=== PATIENT | male | born 1960 | race Caucasian/White ===

== ENCOUNTER 2020-08-15 23:00 | Inpatient (IN) | payer OTHER ==
[~2020-08-15 23:00] MED LIST: Iopamidol-370 76% 500 ML 1 ML ONE
--- NOTE | 2020-08-15 23:12 | CT ---
Exam: Head CT without contrast HISTORY: Left arm and leg weakness. Slurred speech. Symptoms have improved. COMPARISON: none FINDINGS: Hemorrhage: No intraparenchymal hemorrhage or extra-axial hematoma. Brain parenchyma: Cortical damon-white matter differentiation is preserved. No mass effect or midline shift. Basilar cisterns are patent. Ventricular system: Ventricles and sulci are patent and symmetric. Calvarium: Intact. Sinuses and mastoid air cells: Adequate aeration. IMPRESSION: 1. No acute intracranial process. 2. Results study conveyed to Dr. Nicole 08/15/2020 at 11:09 PM Code CR
[2020-08-15 23:43] LABS: #Eosinphils 0.1 thou/uL (0.0-0.7); #Lymphocytes 2.5 thou/uL (1.20-3.40); #Monocytes 0.8 thou/uL (0.11-0.59); #Neutrophils 2.4 thou/uL (1.40-6.50); %Basophils 0.8 % (0.0-1.0); %Eosinophils 2.1 % (0.0-10.0); %Lymphocytes 42.6 % (21.0-51.0); %Monocytes 13.7 % (0.0-10.0); %Neutrophils 40.8 % (42.0-75.0); Hemoglobin 13.7 g/dL (14.0-18.0); Mean Corpuscular HGB CONC 34.4 g/dL (32.0-36.0); Mean Corpuscular Hemoglobin 32.5 pg (27.0-31.0); Mean Corpuscular Volume 94.5 fL (78.0-98.0); Mean Platelet Volume 7.1 fL (7.4-10.4); Platelet Count 195 thou/uL (130-400); RBC Distribution Width 11.5 % (11.5-14.5)
[2020-08-15 23:49] LABS: PTT 30.9 sec (22.9-36.1); Prothrombin Time 13.5 sec (12.0-14.7)
[2020-08-15 23:59] LABS: ALT (SGPT) 42 U/L (8-55); AST (SGOT) 30 U/L (5-34); Albumin 3.4 g/dL (3.4-4.8); Alkaline Phosphatase 57 U/L (40-110); Anion Gap 14 mmol/L (10-20); BUN (Urea Nitrogen) 16 mg/dL (8.4-25.7); Bilirubin, Total 0.4 mg/dL (0.2-1.2); Calc. Creatinine Clearance 0 mL/min (70-130); Calcium 8.6 mg/dL (7.8-10.44); Carbon Dioxide 26 mmol/L (23-31); Chloride 105 mmol/L (98-107); Globulin 2.9 g/dL (2.4-3.5); Glucose 83 mg/dL (80-115); Potassium 3.6 mmol/L (3.5-5.1); Protein, Total 6.3 g/dL (5.8-8.1); Sodium 141 mmol/L (136-145)
[2020-08-16 01:27] LABS: SARS-CoV-2 NAA Rapid Test Not Detected (NotDetected)
[2020-08-16 01:46] VITALS: BMI 31.8
[2020-08-16] MEDS ORDERED: Ondansetron ODT 4 MG TAB PO PRN (02:43)
[2020-08-16] MEDS ORDERED: Acetaminophen 500 MG TAB PO PRN (02:43)
[2020-08-16] MEDS ORDERED: Ondansetron PF 4 MG/2 ML Vial IVP PRN (02:43)
[2020-08-16] MEDS ORDERED: hydrALAZINE 20 MG/ML VIAL SLOW IVP PRN (02:43)
--- NOTE | 2020-08-16 03:51 | HP ---
PRIMARY CARE PROVIDER: Dr. Beatrice Michele. CHIEF COMPLAINT: Difficulty speaking and left-sided weakness. HISTORY OF PRESENT ILLNESS: This is a 60-year-old male, who presented to [facility] Emergency Room complaining of stroke-like symptoms including weakness to the left upper and lower extremities as well as difficulty speaking. The patient states the symptoms began approximately 8:00 p.m. on 08/15/2020 at which point, the patient notified EMS personnel. The patient was transported to [facility], undergoing CT imaging of the brain as well as CT angiogram of the head and neck. No specific areas of infarct were identified; however, due to the patient's presentation and discussions with the patient, the patient received tPA in the emergency room. The patient had some improvement in the weakness of his left upper extremity and speech deficit had improved as well. The patient denies any previous similar symptoms in the past and states he has been compliant with his chronic medication regimen including aspirin and Crestor. The patient does admit to history of coronary artery disease, but states overall he has been doing well with his medical management. The patient denies any visual disturbance, difficulty swallowing, or recent fall. The patient denied any recent surgical interventions or trauma. PAST MEDICAL HISTORY: 1. Diabetes mellitus type 2. 2. Hypertension. 3. Coronary artery disease. PAST SURGICAL HISTORY: Status post cardiac stent placement with repeat angioplasty in 2000. CURRENT MEDICATIONS: 1. Felodipine 10 mg p.o. daily. 2. Metoprolol succinate 100 mg p.o. daily. 3. Aspirin 325 mg p.o. daily. 4. Isosorbide mononitrate 30 mg p.o. daily. 5. Losartan 25 mg p.o. daily. 6. Metformin 500 mg p.o. b.i.d. 7. Crestor 10 mg p.o. at bedtime. 8. Multivitamin 1 tablet p.o. daily. 9. Hydrochlorothiazide 25 mg p.o. daily. ALLERGIES: NO KNOWN DRUG ALLERGIES. FAMILY HISTORY: Positive for hypertension and diabetes mellitus. SOCIAL HISTORY: Resides in [place], [place]. . 2-3 beers per week. Quit tobacco use more than 10 years prior to this evaluation. No illicit drug use. REVIEW OF SYSTEMS: CONSTITUTIONAL: Negative for weight loss or gain, ability to conduct usual activities. SKIN: Negative for rash, itching. EYES: Negative for double vision, pain. ENT/MOUTH: Negative for nose bleeding, neck stiffness, pain, tenderness. CARDIOVASCULAR: Negative for palpitations, dyspnea on exertion, orthopnea. RESPIRATORY: Negative for shortness of breath, wheezing, cough, hemoptysis, fever or night sweats. GASTROINTESTINAL: Negative for poor appetite, abdominal pain, heartburn, nausea, vomiting, constipation, or diarrhea. GENITOURINARY: Negative for urgency, frequency, dysuria, nocturia. MUSCULOSKELETAL: Negative for pain, swelling. NEUROLOGIC/PSYCHIATRIC: Negative for anxiety, depression. ALLERGY/IMMUNOLOGIC: Negative for skin rash, bleeding tendency. Otherwise, negative except as stated per HPI. PHYSICAL EXAMINATION: VITAL SIGNS: On admission, blood pressure 124/75, pulse 86, respiratory rate 22, temperature 97.9 degrees Fahrenheit, and O2 saturation 98% on room air. GENERAL APPEARANCE: This is a 60-year-old male, alert and oriented x3, pleasant, responsive, in no acute distress. HEENT: Pupils are equal, round, reactive to light and accommodation. Extraocular muscles are intact. No scleral icterus. No conjunctival injection. Nares patent. OP is clear. Teeth in fair repair. NECK: Supple. No cervical adenopathy. No thyromegaly. No carotid bruits. No JVD appreciated. Cervical spine with full active and passive range of motion. No meningeal signs noted. CHEST: Lungs are clear to auscultation bilaterally. CARDIOVASCULAR: S1, S2 without noted murmur, rub, or gallop. ABDOMEN: Rounded, soft, nontender, and nondistended. Bowel sounds are positive in all 4 quadrants. There is no hepatosplenomegaly. No abdominal bruits. No rebound or guarding appreciated. EXTREMITIES: Warm and dry with fair turgor. No clubbing, cyanosis, or asymmetric edema noted. Pulses palpable distally at the dorsalis pedis, posterior tibial, and popliteal arteries bilaterally. Capillary refill less than 2 seconds. NEUROLOGIC: Cranial nerves 2 through 12 are grossly intact. Mild left upper extremity weakness in conductor/engineer strength compared to the right. Mild left facial asymmetry. Moves all extremities on command. Not observed ambulatory during this exam. PERTINENT LABORATORY AND X-RAY FINDINGS: Complete metabolic profile within normal limits. Troponin-I negative x1. CBC showed a white blood cell count of 6.0, hemoglobin 14, hematocrit 40, and platelet count 195, with 41% neutrophils. PT 13.5, INR 1.0, PTT 31. COVID-19 PCR not detected on 08/16/2020. CT of the brain without contrast dated 08/15/2020, showed no acute intracranial process. CT angiogram of the head and neck dated 08/15/2020, showed no hemodynamically significant stenosis, occlusion, or aneurysm. EKG dated 08/15/2020, by my interpretation shows sinus mechanism. Normal R-wave progression noted in the precordial leads. No acute ST-T wave changes noted. Normal axis. ASSESSMENT AND PLAN: 1. Acute cerebrovascular accident with left-sided weakness. The patient will be admitted to the Critical Care Unit after receiving tPA in the emergency room. Overall neurologic deficits resolving currently. We will continue to monitor in the Critical Care Unit per protocol. Check 2D transthoracic echocardiogram in the a.m. Consult Neurology Service for any further recommendations. Hold aspirin for 24 hours after tPA administration. 2. Hypertension. Resume home blood pressure regimen and monitor clinical response. 3. Hyperlipidemia. Check fasting lipid profile per stroke protocol. Continue Crestor. 4. Coronary artery disease, chronic and stable. Continue medical management. 5. Prophylaxis. SCDs while in bed. Pepcid 20 mg p.o. b.i.d. CODE STATUS: Full. Surrogate medical decision maker is the patient's spouse. Job ID: [id number]
[2020-08-16 04:24] LABS: #Eosinphils 0.1 thou/uL (0.0-0.7); #Lymphocytes 2.5 thou/uL (1.20-3.40); #Monocytes 0.8 thou/uL (0.11-0.59); #Neutrophils 2.1 thou/uL (1.40-6.50); %Basophils 0.8 % (0.0-1.0); %Eosinophils 2.3 % (0.0-10.0); %Lymphocytes 45.5 % (21.0-51.0); %Monocytes 14.2 % (0.0-10.0); %Neutrophils 37.2 % (42.0-75.0); Hemoglobin 14.3 g/dL (14.0-18.0); Mean Corpuscular HGB CONC 34.1 g/dL (32.0-36.0); Mean Corpuscular Hemoglobin 32.5 pg (27.0-31.0); Mean Corpuscular Volume 95.3 fL (78.0-98.0); Mean Platelet Volume 7.3 fL (7.4-10.4); Platelet Count 195 thou/uL (130-400); RBC Distribution Width 11.7 % (11.5-14.5); Red Blood Cell (RBC) Count 4.41 mill/uL (4.70-6.10); White Blood Cell (WBC) Count 5.5 thou/uL (4.8-10.8)
[2020-08-16 04:45] LABS: ALT (SGPT) 43 U/L (8-55); AST (SGOT) 29 U/L (5-34); Albumin 3.7 g/dL (3.4-4.8); Alkaline Phosphatase 57 U/L (40-110); Anion Gap 15 mmol/L (10-20); BUN (Urea Nitrogen) 15 mg/dL (8.4-25.7); Bilirubin, Total 0.4 mg/dL (0.2-1.2); Calc. Creatinine Clearance 121 mL/min (70-130); Calcium 8.7 mg/dL (7.8-10.44); Carbon Dioxide 23 mmol/L (23-31); Cardiac Risk 2.2 (Less than 4.5); Chloride 106 mmol/L (98-107); Cholesterol 111 mg/dl (< 200 Desired); Globulin 3.2 g/dL (2.4-3.5); Glucose 102 mg/dL (80-115); HDL Cholesterol 50 mg/dL (>60 Neg Risk); LDL Cholesterol, Calculated 34 mg/dL; Potassium 3.6 mmol/L (3.5-5.1); Protein, Total 6.9 g/dL (5.8-8.1); Sodium 140 mmol/L (136-145); Triglycerides 136 mg/dL (Less than 150)
[2020-08-16] MEDS ORDERED: Cholecalciferol (Vitamin D3) 400 UNITS TAB PO SCH (09:00)
[2020-08-16] MEDS: hydrALAZINE 10 MG TAB PO SCH ×4 (09:15→21:58)
[2020-08-16] MEDS: Famotidine 20 MG TAB PO SCH ×2 (09:15→21:58)
--- NOTE | 2020-08-16 09:49 | PDOC.HOSPP ---
- Subjective Encounter Date: 08/16/20 (f/u stroke) Encounter Time: 09:47 Subjective: Pt today reports some numbness/tingling on left side of face. He denies any problems with strength/vision, denies any headache. NIH on arrival 4, RN reports it is now a 1. - Objective Vital Signs & Weight: Vital Signs (12 hours) Temp Pulse BP Pulse Ox 08/16/20 09:15 72 140/95 H 08/16/20 08:00 98.5 F 100 08/16/20 04:00 98.2 F 08/16/20 02:43 97 08/16/20 01:41 97.7 F Weight Weight 209 lb 7.026 oz Most Recent Monitor Data Heart Rate from ECG 71 NIBP 143/89 NIBP BP-Mean 107 Respiration from ECG 22 SpO2 100 I&O: 08/15/20 08/16/20 08/17/20 06:59 06:59 06:59 Intake Total 350 Output Total 0 550 Balance 0 -200 Result Diagrams: 08/16/20 03:12 08/16/20 03:12 EKG Reviewed by me: Yes (tele - sinus 80's) Hospitalist ROS - Medication Medications: Active Medications Generic Name Dose Route Start Last Admin Trade Name Freq PRN Reason Stop Dose Admin Cholecalciferol 400 units 08/16/20 09:00 08/16/20 09:18 Cholecalciferol (Vitamin D3) 400 Units Tab PO 400 units DAILY LEYDI Administration Famotidine 20 mg 08/16/20 09:00 08/16/20 09:15 Famotidine 20 Mg Tab PO 20 mg BID LEYDI Administration Hydralazine HCl 10 mg 08/16/20 09:00 08/16/20 09:15 Hydralazine 10 Mg Tab PO 10 mg QID LEYDI Administration Metoprolol Succinate 100 mg 08/16/20 09:00 08/16/20 09:15 Metoprolol Succinate Xl 100 Mg Tab PO 100 mg DAILY LEYDI Administration - Exam General Appearance: NAD Heart: RRR, no murmur Respiratory: CTAB, no wheezes Gastrointestinal: soft, non-tender, non-distended, normal bowel sounds Extremities: no cyanosis, no clubbing, no edema Neurological: no focal deficits Psychiatric: normal affect Hosp A/P (1) Ischemic stroke Code(s): I63.9 - CEREBRAL INFARCTION, UNSPECIFIED Status: Acute (2) Hypertension Code(s): I10 - ESSENTIAL (PRIMARY) HYPERTENSION Status: Chronic (3) Diabetes Code(s): E11.9 - TYPE 2 DIABETES MELLITUS WITHOUT COMPLICATIONS Status: Chronic Qualifiers: Diabetes mellitus type: type 2 Diabetes mellitus terminal gauger insulin use: without group home use (4) Coronary artery disease Code(s): I25.10 - ATHSCL HEART DISEASE OF [place] CORONARY ARTERY W/O ANG PCTRS Status: Chronic (5) Dyslipidemia Code(s): E78.5 - HYPERLIPIDEMIA, UNSPECIFIED Status: Chronic - Plan Ischemic stroke s/p tPA with mild residual facial sx - stroke eval - neuro consult - start aspirin tomorrow - obtain echo result - MRI - continue statin HTN - continue home meds HLP - continue statin DM - controlled, continue ISS dvt prophy - - scd's due to tPA overnight gi prophy - famotidine code status full reviewed plan of care with patient, no questions or further needs at end of eval.
[2020-08-16] MEDS: Amlodipine 10 MG TAB PO SCH (09:55)
--- NOTE | 2020-08-16 12:11 | CON ---
DATE OF CONSULTATION: 08/16/2020 This is ICU consultation related to stroke. HISTORY OF PRESENT ILLNESS: The patient is a 60-year-old male who developed abrupt left arm weakness and left-sided facial droop yesterday. He was given tPA last night and has had recovery of his left arm deficit, but continues to have facial droop. PAST MEDICAL HISTORY: 1. Diabetes mellitus. 2. Hypertension. 3. Coronary artery disease. PAST SURGICAL HISTORY: Coronary stent placement. MEDICATIONS: Prior to admission; 1. Felodipine. 2. Metoprolol. 3. Aspirin. 4. Isosorbide. 5. Losartan. 6. Metformin. 7. Crestor. 8. Multivitamin. 9. Hydrochlorothiazide. ALLERGIES: NONE. SOCIAL HISTORY: The patient quit smoking about 10 years ago. He works in the [employer]. He drinks 2 to 3 beers a week. He lives in [place]. ALLERGIES: NONE. FAMILY HISTORY: Remarkable for hypertension, diabetes. REVIEW OF SYSTEMS: Twelve-point review of systems otherwise negative. PHYSICAL EXAMINATION: VITAL SIGNS: Heart rate 66, blood pressure 141/83, O2 saturation 100%, respiratory rate 18. HEENT: He has a slight left-sided facial droop. Tongue protrudes midline. NECK: No adenopathy or JVD. LUNGS: Clear to auscultation. CARDIAC: S1 and S2. Regular without murmur. ABDOMEN: Soft and nontender to palpation. EXTREMITIES: No clubbing, cyanosis, or edema. NEUROMUSCULAR: His arm and leg strength is equal throughout. He has sensation throughout. DTRs are 2+/4 throughout. LABORATORY DATA: White blood cell count 5.5, hematocrit 42, and platelet count 195. Sodium 140, potassium 3.6, chloride 106, CO2 of 23, BUN 15, creatinine 0.8, and glucose 102. COVID test was negative. CT of the [place] of [place] demonstrated no significant findings. ASSESSMENT: 1. Stroke with symptoms improved after tPA administration. 2. Underlying risk factors including diabetes mellitus, coronary artery disease, and hypertension. PLAN: The patient will remain in ICU until his 24 hours or up from tPA administration. He is being treated appropriately with aspirin, antihypertensives, cholesterol-lowering medication, and diabetic medications. No further Pulmonary/Critical Care recommendations. We will sign off. Please recall if further assistance needed. Job ID: [id number]
--- NOTE | 2020-08-16 13:13 | MRI ---
MRI BRAIN WITHOUT CONTRAST: INDICATION: Stroke. FINDINGS: Ventricles have normal size and position. Very mild chronic ischemic white matter change. No eviden ce of restricted diffusion. No evidence of acute infarct. No mass or hemorrhage. IMPRESSION: No acute process. POS: AGW
--- NOTE | 2020-08-16 15:13 | CON ---
DATE OF CONSULTATION: 08/16/2020 CONSULTING PHYSICIAN: Hospitalist Services. IMPRESSION: 1. Transient ischemic attack, status post tPA. 2. Aspirin failure. PLAN: 1. Add Plavix 75 mg per day. 2. Review echocardiogram. HISTORY OF PRESENT ILLNESS: Mr. Lux is a 60-year-old man with a past history of coronary artery disease, hypertension, and diabetes. He presented with left-sided weakness. His CT and CT angiogram were both unremarkable. He was given tPA. His symptoms lasted about an hour. He was in a normal sinus rhythm. His COVID test was negative. Subsequently had an MRI of the brain, which did not reveal any evidence of any ischemic injury. His echocardiogram showed a normal ejection fraction of 55% to 60%. He reports being compliant with aspirin and Crestor prior to admission. PAST MEDICAL HISTORY: As listed above. ALLERGIES: NONE REPORTED. SOCIAL HISTORY: Unremarkable. FAMILY HISTORY: Unremarkable. MEDICATION LIST: Reviewed. REVIEW OF SYSTEMS: Ten-system review of systems is otherwise negative. PHYSICAL EXAMINATION: VITAL SIGNS: Blood pressure 135/86, pulse 70 and in a sinus rhythm, respirations 18, and saturations 96%. HEENT: Pupils are equal and reactive. Conjunctivae clear. Oropharynx clear. He has a birthmark on the right cheek. NECK: Supple. No lymphadenopathy. CHEST: Clear. ABDOMEN: Rotund, but nontender. EXTREMITIES: No cyanosis or edema. SKIN: Unremarkable. NEUROLOGIC: Alert and appropriate. His speech is fluent and clear. There were no focal deficits present. SUMMARY: A middle-aged man with some transient left-sided weakness, likely secondary to a small vessel ischemic event. His symptoms have resolved. I would discharge him on Plavix and aspirin. I would be happy to follow up with him as an outpatient. Job ID: [id number]
[2020-08-16 16:50] VITALS: BP 148/80
[2020-08-16] MEDS ORDERED: Atorvastatin Calcium 40 MG TAB PO SCH (21:00)
[2020-08-17 08:03] VITALS: TEMP 97.8
[2020-08-17] MEDS: hydrALAZINE 10 MG TAB PO SCH (08:28)
[2020-08-17] MEDS: Famotidine 20 MG TAB PO SCH (08:29)
[2020-08-17] MEDS: Amlodipine 10 MG TAB PO SCH (08:29)
--- NOTE | 2020-08-17 08:38 | DIS ---
DATE OF ADMISSION: 08/16/2020 DATE OF DISCHARGE: 08/17/2020 CONSULTANTS: 1. Dr. Fitzgerald of Neurology. 2. Dr. Valle of Pulmonary Critical Care. MEDICATIONS: Reconciled at discharge. New medications; 1. Plavix 75 mg once a day. Prescription provided for 30 days. Further refills to come from either the primary care or Dr. Fitzgerald. 2. Atorvastatin 40 mg at bedtime. Medications changed; aspirin is changed from 325 mg daily to 81 mg daily. This change is due to adding clopidogrel. Medications to resume; 1. Felodipine 10 mg once daily. 2. Hydralazine 10 mg four times daily. 3. Metoprolol succinate 100 mg daily. 4. Vitamin D3, 400 units daily. 5. Vitamin B12, 500 mcg daily. 6. Multivitamin daily. 7. Nitroglycerin 0.4 mg every 5 minutes as needed for chest pain. 8. Metformin 500 mg daily. 9. Nitroglycerin 0.4 mg sublingual every 5 minutes to a maximum of 3 doses prn for chest pain. 10. Losartan 25 mg daily. 11. Imdur 30 mg daily. 12. Hydrochlorothiazide 25 mg daily. FINAL DIAGNOSES: Ischemic stroke with residual left-sided facial drooping and numbness. The patient is status post tPA. SECONDARY DIAGNOSES: 1. Coronary artery disease. 2. Diabetes mellitus. 3. Hypertension. 4. Dyslipidemia. HISTORY OF PRESENT ILLNESS: Mr. Lux is a 60-year-old male, who presented to the emergency room with complaint of left-sided weakness and difficulty speaking. The onset was at 8 p.m. He underwent a negative CT of the brain and was in the window for tPA and he received it. The patient was admitted to the ICU for monitoring. HOSPITAL COURSE: The patient has done incredibly well during this hospitalization. He reports that the weakness has completely resolved on his left side. He does have numbness along his cheek on the left side and notices some drooling and some changes in his speech. His MRI was negative, echocardiogram was normal, and telemetry monitoring is normal. He was evaluated by Neurology with recommendation to change from full-dose aspirin to low-dose aspirin and Plavix combination. As well, it is recommended that he follow up with Dr. Fitzgerald in the outpatient setting. The patient was managed on his usual medications while here. His labs have remained normal, blood sugars are well controlled. The patient was evaluated by PT, OT, and speech and cleared. Given normal function, the patient does meet criteria for discharge to home. PHYSICAL EXAMINATION: VITAL SIGNS: Blood pressure 139/87, pulse 65, respirations 17, sat 90% on room air. This morning, however, it has been higher. Telemetry monitoring, sinus rhythm with a rate in the 60s. GENERAL: Awake, alert, responsive, in no apparent distress. HEENT: He has a left facial droop. LUNGS: Clear to auscultation. HEART: Normal S1 and S2. Regular rate and rhythm. No significant murmur. ABDOMEN: Soft with present bowel sounds. EXTREMITIES: No edema. NEURO: No focal deficits. Only the left facial droop and slight slurring of his speech. GARSIA FINDINGS AND TEST RESULTS: CBC on 08/16; 5.5, 14.3, 42.0, 195. INR 1. Renal panel; 140, 3.6, 106, 23, 15, 0.86, 102. LFTs are normal. Triglycerides 136, cholesterol 111, LDL 34, HDL 50. COVID testing was negative. Echocardiogram on August 16, EF 55% to 60%. Brain MRI on August 16 shows no acute process. CT angiogram of [place], no hemodynamically significant stenosis, occlusion, or aneurysmal formation. Brain CT on August 15, no acute intracranial process. DIET: Heart healthy, carbohydrate consistent. ACTIVITY: As tolerated. FOLLOWUP: 1. Follow up with Dr. Michele within a week to review this hospitalization and address any other health needs, with strict control recommended for blood sugars as well as blood pressure. 2. Follow up with Dr. Fitzgerald in a week or 2 to monitor current symptoms from the stroke. Reviewed with patient this hospitalization, the importance of followup and the seek care precautions. In addition, we talked about secondary risk reduction with the addition of Plavix and changing over to the low-dose aspirin. The patient does demonstrate understanding. DISCHARGE DISPOSITION: Home. CODE STATUS: Full. TIME SPENT: Total time coordinating discharge is 35 minutes. Job ID: [id number] MTDD
[2020-08-17] MEDS ORDERED: Clopidogrel Bisulfate 75 MG TAB PO SCH (09:00)
[2020-08-17] MEDS ORDERED: Aspirin 81 mg Enteric Coated Tablet PO SCH (09:00)
--- NOTE | 2020-08-19 11:21 | CT ---
EXAM: CT ANGIOGRAM OF THE HEAD AND NECK INDICATION: Level 1 stroke alert. Left arm and leg weakness, resolving. COMPARISON: None TECHNIQUE: CT angiogram of the head and neck are performed in the axial plane. Three-dimensional refo rmatted images are submitted for interpretation. FINDINGS: CTA OF THE HEAD WITH AND WITHOUT CONTRAST: POSTCONTRAST CT OF BRAIN: Pathologic enhancement: No pathologic enhancement the brain. Postcontrast soft tissue neck CT: Aerodigestive tract:Aerodigestive tract is patent. No mucosal abnormality. Sinuses: Adequate aeration. Orbits: Bilateral ocular lenses are appropriately located. Both globes are intact. Retrobulbar fat is preserved. Symmetric attenuation the optic nerves and ocular rectus muscles. Salivary glands:Symmetric attenuation Thyroid gland: Appropriate attenuation Lymph nodes: No evidence of lymphadenopathy by size criteria. Paraspinal muscles: Symmetric attenuation of the sternocleidomastoid muscles. Appropriate attenuation of the paraspinal muscles. Cervical spine:Vertebral body height is maintained. No fracture. No significant central canal stenosi s. There are varying degrees of significant neural foraminal narrowing. Limited evaluation by technique. Upper mediastinum and lung apices: No acute abnormality. CTA OF THE NECK WITH CONTRAST: Aorta: Atherosclerosis. Normal caliber and enhancement. Right carotid artery: Appropriate enhancement and luminal diameter. No significant stenosis based upo n NASCET criteria. Left carotid: Appropriate enhancement and luminal diameter. No significant stenosis based upon NASCET criteria. Minimal atherosclerosis involving the left carotid bifurcation and proximal left internal carotid artery. Subclavian arteries:Patent and symmetric Vertebral arteries:Patent throughout their course in the neck. Dominant left vertebral artery. CTA OF THE BRAIN: Intracranial internal carotid arteries:Appropriate enhancement and luminal diameter. Anterior circulation: Appropriate enhancement and luminal diameter the bilateral A1 segments, M1 segm ents, A2 segments and MCA branches. No evidence of vascular occlusion or high-grade stenosis in the anterior circulation. Intracranial vertebral arteries: Appropriate enhancement and luminal diameter. Limited evaluation of PICA artery origins. Posterior circulation: Both vertebral arteries supply normal caliber basilar artery. Bilateral P1 seg ments have appropriate enhancement and luminal diameter. IMPRESSION: 1. No hemodynamically significant stenosis, occlusion or aneurysmal formation. Findings of the study conveyed to Dr. Nicole 08/15/2020 at 11:25 PM Code CR Transcribed Date/Time: 08/19/2020 11:21 AM
== END 2020-08-17 11:00 | disposition home or self-care (01) | DRG 62 ==
LOC: ERS 23:00 → CCU 08-16 01:01
PROVIDERS: ADMIT Family Medicine; ATTEND Family Medicine
DX: I63.9 Cerebral infarction, unspecified (principal); G81.94 Hemiplegia, unspecified affecting left nondominant side; I10 Essential (primary) hypertension; R47.1 Dysarthria and anarthria; Z20.828 Contact with and (suspected) exposure to other viral communicable diseases; E78.5 Hyperlipidemia, unspecified; I25.10 Atherosclerotic heart disease of native coronary artery without angina pectoris; R29.810 Facial weakness; E11.9 Type 2 diabetes mellitus without complications; Z95.5 Presence of coronary angioplasty implant and graft; Z79.82 Long term (current) use of aspirin; Z79.84 Long term (current) use of oral hypoglycemic drugs; Z87.891 Personal history of nicotine dependence
CPT/HCPCS: 36415; 70450; 70496; 70498; 70551; 80053; 80061; 84484; 85025; 85610; 85730; 93005; 93306; 96365; J2997; Q9967; U0002

== ENCOUNTER 2020-09-16 13:44 | Outpatient (CLI) | payer OTHER ==
--- NOTE | 2020-09-16 14:12 | ULT ---
BILATERAL CAROTID DUPLEX ULTRASOUND: HISTORY: CVA TECHNIQUE: Grayscale, color-flow and spectral Doppler ultrasound imaging of the extracranial carotid artery syst ems was performed bilaterally. FINDINGS: A small amount of plaque formation is seen in the left ICA at its origin. The peak systolic velocity in the right ICA measures 68 cm/s with an end-diastolic velocity of 24 cm/ s and a systolic ratio of 0.81. The peak systolic velocity in the left ICA measures 80 cm/s with an end-diastolic velocity of 32 cm/s and a systolic ratio of 0.98. Flow in both vertebral arteries remains antegrade. IMPRESSION: No evidence of hemodynamically significant stenosis in either ICA.
== END 2020-09-16 13:45 | disposition home or self-care (01) ==
LOC: BICULT 13:44
PROVIDERS: ATTEND Nurse Practitioner Acute Care
DX: I63.9 Cerebral infarction, unspecified (principal)
CPT/HCPCS: 93880